=== PATIENT | female | born 1985 | race African-American/Black ===

== ENCOUNTER 2017-06-24 05:53 | Day surgery (SDC) | payer OTHER ==
[~2017-06-24] VITALS: Ht 152.4 cm; Wt 62.0 kg
[~2017-06-24 05:53] MED LIST: ADVIL200 MG PO; ANTIDEPRESSANT PO; FLONASE16 G1 BOTH NARES; LEXAPRO20 MG PO; LISINOPRIL10 MG PO; MIRTAZAPINE15 MG PO; MIRTAZAPINE30 MG PO; MUCUS ER600 MG PO; PRINIVIL10 MG PO; ZESTRIL10 MG PO; ZYRTEC10 M2 PO
[2017-06-24 06:10] VITALS: BP 120/76
[2017-06-24] MEDS ORDERED: ENDOCET 5-3251 EACH PO (08:03)
[2017-06-24 09:20] VITALS: BP 125/73
[2017-06-24 10:12] VITALS: BP 127/68
== END 2017-06-24 10:15 | disposition home or self-care (01) ==
LOC: SDC 05:53
PROC: 0UBC7ZX Excision of Cervix, Via Natural or Artificial Opening, Diagnostic (ICD-10-PCS; principal; 2017-06-24)
DX: D06.9 Carcinoma in situ of cervix, unspecified (principal); I10 Essential (primary) hypertension; K21.9 Gastro-esophageal reflux disease without esophagitis; F17.210 Nicotine dependence, cigarettes, uncomplicated
CPT/HCPCS: 88305; J1170; J1885; J2250; J2405; J3010

== ENCOUNTER 2017-10-28 02:42 | Emergency (ER) | payer OTHER ==
[~2017-10-28] VITALS: Ht 152.4 cm; Wt 57.2 kg
[~2017-10-28 02:42] MED LIST changes: +ENDOCET 5-3251 EACH PO
[2017-10-28 03:09] LABS: HEMATOCRIT 36.8 % (36.0-46.0); HEMOGLOBIN 12.7 G/DL (11.9-15.5); MCH 30.9 PG (29.0-34.0); MCHC 34.5 G/DL (30.0-36.0); MCV 89.5 FL (83-99); PLATELET COUNT 325 K/uL (156-360); RBC DIS.WIDTH-CV 12.3 % (11.8-14.6); RBC DIS.WIDTH-SD 40.7 % (39-53); RED BLOOD COUNT 4.11 M/uL (3.80-5.20); WHITE BLOOD COUNT 7.9 K/uL (4.1-10.2)
[2017-10-28 03:18] LABS: CHLORIDE 105 mEq/L (99-109); SODIUM 139 mEq/L (136-147)
[2017-10-28 03:19] LABS: GLUCOSE 119 mg/dL (70-99)
[2017-10-28 03:23] LABS: CREATININE 0.8 mg/dL (0.6-1.3); GFR ESTIMATE (CALCULATED) > 59 mL/min/
[2017-10-28 03:24] LABS: UREA NITROGEN (BUN) 11 mg/dL (9-23)
[2017-10-28 03:31] LABS: TROP-I INTERPRETATION NEGATIVE; TROPONIN-I < 0.01 ng/mL (0.0-0.30)
[2017-10-28 04:54] LABS: ALBUMIN 4.4 g/dL (3.2-4.8)
[2017-10-28 04:57] LABS: TOTAL PROTEIN 7.4 g/dL (6.4-8.3)
[2017-10-28 04:59] LABS: TOTAL BILIRUBIN 0.4 mg/dL (0.0-1.0)
[2017-10-28 05:00] LABS: ALKALINE PHOSPHATASE 92 IU/L (3-129)
[2017-10-28 05:02] LABS: AST (GOT) 14 IU/L (2-34); DIRECT BILIRUBIN 0.2 mg/dL (0.0-0.3)
[2017-10-28 05:03] LABS: ALT (GPT) 8 IU/L (3-49); LIPASE 15 U/L (1.0-51.0)
[2017-10-28 05:09] LABS: QUANTITATIVE HCG < 4.0 MIU/ML
[2017-10-28] MEDS ORDERED: BENTYL20 MG PO (05:16)
[2017-10-28] MEDS ORDERED: ZOFRAN4 MG PO (05:16)
[2017-10-28 06:15] VITALS: BP 131/85
== END 2017-10-28 06:27 | disposition home or self-care (01) ==
LOC: EME 02:42
DX: R10.13 Epigastric pain (principal); R07.89 Other chest pain; R94.31 Abnormal electrocardiogram [ECG] [EKG]; I10 Essential (primary) hypertension; K21.9 Gastro-esophageal reflux disease without esophagitis; F41.9 Anxiety disorder, unspecified; F17.200 Nicotine dependence, unspecified, uncomplicated; Z87.19 Personal history of other diseases of the digestive system; Z91.5 Personal history of self-harm
CPT/HCPCS: 71046; 76705; 80048; 80076; 83690; 84484; 84702; 85027; 93005; 99281; 99284